=== PATIENT | female | born 1970 | race Caucasian/White ===

== ENCOUNTER → 2020-08-05 08:04 | Outpatient (BNVA) | payer BC, SELFPAY | PROVIDERS: PCP Nurse Practitioner Primary Care; Referring Provider Nurse Practitioner Primary Care; Visit Provider Physician Assistant ==

== ENCOUNTER → 2020-08-10 08:08 | Outpatient (BNVA) | payer BC, SELFPAY | PROVIDERS: PCP Nurse Practitioner Primary Care; Visit Provider Surgery ==

== ENCOUNTER 2020-08-12 07:23 | Outpatient (REF) | payer BC, SELFPAY ==
--- NOTE | ~2020-08-12 | XR_ITS ---
EXAMINATION: XR CHEST CLINICAL INFORMATION: Obesity COMPARISON: None TECHNIQUE: 2 views of the chest were obtained. FINDINGS: The cardiac and mediastinal contours are normal. The lung volumes are low. The lungs are clear. There is no pleural effusion or pneumothorax. There are mild degenerative change of the spine. XR/XR chest 2V IMPRESSION: No evidence for acute disease in the chest.
--- NOTE | 2020-08-12 13:49 | ECG_ITS ---
Test Reason : MORBID OBESITY Blood Pressure : / mmHG Vent. Rate : 094 BPM Atrial Rate : 094 BPM P-R Int : 156 ms QRS Dur : 076 ms QT Int : 354 ms P-R-T Axes : 053 040 050 degrees QTc Int : 442 ms Sinus rhythm with marked sinus arrhythmia Otherwise normal ECG No previous ECGs available Referred By: Víctor Marquez Electronically Signed By:GT CHAPPELL
== END 2020-08-12 07:24 | disposition home or self-care (01) ==
LOC: HO.XRAY 07:23
PROVIDERS: PCP Nurse Practitioner Primary Care; Visit Provider Surgery
DX: E66.01 Morbid (severe) obesity due to excess calories (principal); E78.5 Hyperlipidemia, unspecified; K21.9 Gastro-esophageal reflux disease without esophagitis; Z68.42 Body mass index [BMI] 45.0-49.9, adult; Z71.3 Dietary counseling and surveillance
CPT/HCPCS: 71046; 93005

== ENCOUNTER 2020-08-13 08:10 | Outpatient (REF) | payer BC, SELFPAY ==
[2020-08-13 09:11] LABS: MANUAL DIFF FLAG NO
[2020-08-13 09:18] LABS: Basophils Absolute Auto 0.1 X10*3/uL (0.0-0.2); Basophils Percent Auto 0.6 % (0-2); Eosinophils Absolute Auto 0.3 X10*3/uL (0.0-0.4); Eosinophils Percent Auto 3.1 % (0-4); Hematocrit 41.8 % (37-47); Hemoglobin 13.5 g/dl (12.0-16.0); Imm Gran Abs Auto 0.06 X10*3/uL (0.00-0.03); Imm Gran Pct Auto 0.7 % (0.0-0.4); Lymphocytes Absolute Auto 2.2 X10*3/uL (1.2-4.9); Mean Corpuscular HGB Conc 32.3 g/dl (31.0-35.0); Mean Corpuscular Hemoglobin 29.7 pg (27.0-33.0); Mean Corpuscular Volume 91.9 fL (80-98); Mean Platelet Volume 8.5 fL (9.4-12.3); Monocytes Absolute Auto 0.6 X10*3/uL (0.1-1.2); Neutrophils Absolute Auto 5.6 X10*3/uL (2.0-8.3); Neutrophils Percent Auto 63.6 % (45-73); Platelet Count 411 X10*3/uL (160-400); Red Blood Count 4.55 X10*6/uL (4.20-5.50); Red Cell Distribution Width 13.4 % (11.0-16.0); White Blood Count 8.8 X10*3/uL (4.8-10.8)
[2020-08-13 09:45] LABS: Alanine Aminotransferase 104 U/L (0-31); Albumin Level 3.9 g/dL (3.5-5.0); Alkaline Phosphatase 77 U/L (39-117); Anion Gap 14 (12-20); Aspartate Amino Transferase 152 U/L (5-31); Bilirubin Total 0.3 mg/dL (0.0-1.0); Blood Urea Nitrogen 11 mg/dL (9-16); C Reactive Protein 3.02 mg/dL (< or = 0.50); Calcium 9.3 mg/dL (8.4-10.2); Carbon Dioxide 28 mmol/L (22-29); Chloride 102 mmol/L (96-108); Cholesterol 221 mg/dL; Estimated Average Glucose 123 mg/dL; Estimated Glomerular Filt Rate > 60; Glucose Random 95 mg/dL (60-115); HDL Cholesterol 71 mg/dL; Hemoglobin A1c % 5.9 %; Iron 149 mcg/dL (30-160); LDL Cholesterol Calculated 123 mg/dl; Percent Iron Saturation 33 % (15-50); Potassium 4.6 mmol/L (3.3-5.1); Sodium 139 mmol/L (135-145); Total Iron Binding Capacity 446 mcg/dL (228-428); Total Protein 6.9 g/dL (6.5-8.0); Triglycerides 138 mg/dL; Unsaturated Iron Binding 297 ug/dL
[2020-08-13 10:06] LABS: TSH reflex Free T4 2.75 uIU/mL (0.32-4.0); Vitamin D 25-OH Total 38.2 ng/mL (>30)
[2020-08-13 10:44] LABS: Ferritin 733 ng/mL (10-250)
[2020-08-15 09:36] LABS: Folate 9.9 ng/mL (> or = 4.0); Vitamin B12 1896 pg/mL (200-900)
[2020-08-15 13:16] LABS: Calcium (PTHI) 9.3 mg/dL (8.6-10.2); PTHI 55 pg/mL (14-64)
[2020-08-15 15:17] LABS: Insulin Level Total 12.9 uIU/mL
[2020-08-16 16:12] LABS: Zinc 70 mcg/dL (60-130)
[2020-08-17 12:44] LABS: Vitamin A 55 mcg/dL (38-98)
[2020-08-18 10:08] LABS: Vitamin B1 10 nmol/L (8-30)
== END 2020-08-13 08:11 | disposition home or self-care (01) ==
LOC: HO.LAB 08:10
PROVIDERS: PCP Nurse Practitioner Primary Care; Visit Provider Surgery
DX: E66.01 Morbid (severe) obesity due to excess calories (principal); E78.5 Hyperlipidemia, unspecified; K21.9 Gastro-esophageal reflux disease without esophagitis
CPT/HCPCS: 36415; 80053; 80061; 82306; 82607; 82728; 82746; 83036; 83525; 83540; 83970; 84425; 84443; 84590; 84630; 85025; 86140

== ENCOUNTER → 2020-08-25 10:55 | Day surgery (SDC) | payer BC, SELFPAY ==
[2020-08-17 20:26] VITALS: BMI 46.8
--- NOTE | 2020-08-24 08:47 | HO.ANESPROP2 ---
Documented by User: Afshan Collier 08/24/20 08:48 HPI - Anesthesia Eval Consult details Narrative: 50yo F for Upper Endoscopy PMFSH Active Problems Active Problems: All Active Problems (Updated 08/17/20 @ 20:25 by Katharine Hernandez RN) Steatosis, liver (Acute) Back pain (Acute) Knee pain (Acute) GERD (gastroesophageal reflux disease) (Acute) Hyperlipemia (Acute) Morbid obesity (Acute) Past Medical History Medical History Anxiety Arthritis Back pain GERD (gastroesophageal reflux disease) Hyperlipemia Knee pain Morbid obesity Steatosis, liver Family History Family History Mother No problems noted. Father No problems noted. Brother Diabetes Sister No problems noted. Sister Liver enzyme elevation Son No problems noted. Daughter No problems noted. Surgical History Surgical History History of ankle surgery Hx of cholecystectomy Social History Social History Alcohol intake: current Alcohol intake frequency: a few times a month Smoking Status: Never smoker Use of substances other than those prescribed or required for medical reasons: No Are you DNR?: No Advance Directives: No Advance Directives Information Provided: No Advance Directives on File: No Recently lost weight without trying: No Nutrition Risks: No Nutritional Risk Patient : No FDLMP: 07/31/20 Meds Allergies Allergy/AdvReac Type Severity Reaction Status Date / Time No Known Allergies Allergy Verified 08/12/20 07:40 Home Medications Medication Instructions Recorded Confirmed Last Taken Type ethynodiol diacetate-ethinyl 1 tab PO DAILY 08/10/20 08/17/20 Unknown History estradiol 1 mg-35 mcg tablet omeprazole 20 mg capsule,delayed 20 mg PO DAILY 08/10/20 08/17/20 Unknown History release rosuvastatin 5 mg tablet 5 mg PO DAILY 08/10/20 08/17/20 Unknown History Exam Exam Date and Time: August 24, 2020 0847 Height,Weight and Vital Signs: Height 5 ft 1 in Weight 112.491 kg Narrative Narrative: EKG 08/12/20 Vent. Rate : 094 BPM Atrial Rate : 094 BPM P-R Int : 156 ms QRS Dur : 076 ms QT Int : 354 ms P-R-T Axes : 053 040 050 degrees QTc Int : 442 ms Sinus rhythm with marked sinus arrhythmia Otherwise normal ECG No previous ECGs available Assessment and Plan Assessment Anesthesia Assessment: Chart Reviewed Documented by User: Mouna Garcia 08/25/20 12:55 [facility] Past Medical History Medical History Anxiety Arthritis Back pain GERD (gastroesophageal reflux disease) Hyperlipemia Knee pain Morbid obesity Steatosis, liver Family History Family History Mother No problems noted. Father No problems noted. Brother Diabetes Sister No problems noted. Sister Liver enzyme elevation Son No problems noted. Daughter No problems noted. Surgical History Surgical History History of ankle surgery Hx of cholecystectomy Social History Social History Alcohol intake: current Alcohol intake frequency: a few times a month Smoking Status: Never smoker Use of substances other than those prescribed or required for medical reasons: No Are you DNR?: No Advance Directives: No Advance Directives Information Provided: No Advance Directives on File: No Recently lost weight without trying: No Nutrition Risks: No Nutritional Risk Patient : No FDLMP: 07/31/20 Meds Allergies Allergy/AdvReac Type Severity Reaction Status Date / Time No Known Allergies Allergy Verified 08/12/20 07:40 Home Medications Medication Instructions Recorded Confirmed Last Taken Type ethynodiol diacetate-ethinyl 1 tab PO DAILY 08/10/20 08/17/20 Unknown History estradiol 1 mg-35 mcg tablet omeprazole 20 mg capsule,delayed 20 mg PO DAILY 08/10/20 08/17/20 Unknown History release rosuvastatin 5 mg tablet 5 mg PO DAILY 08/10/20 08/17/20 Unknown History Exam Airway Mallampati Class: II TM Dist: >3cm Neck ROM: Full Loose/Missing/Broken Teeth: No Heart: RRR Lungs: CTA Assessment and Plan Assessment Anesthesia Assessment: Anesthesia Plan Discussed and Chart Reviewed Final Anesthetic Review NPO: Yes ASA Class: III Final Preanesthetic Review: Meds/Allgs Chart Reviewed, Consent Obtained/Reviewed and Anes Risks/Benef Reviewed Patient Risk: Intermediate Procedure Risk: Intermediate Anesthetic Plan Anesthetic Plan: MAC: Disposition: Standard PACU
--- NOTE | 2020-08-24 23:11 | MHC.SHP ---
Pre-Procedural Eval Section A The patient is an INPATIENT: No The History & Physical has been completed within 30 days and I have reviewed it.: Yes Section B Chief Complaint: reflux Details of Present Illness: GERD Relevant Family History (Specify if Yes): No Relevant Social History: None Present Medications: see Short Stay Collaborative assessment Medical History: No relevant PMH History of Previous Operations: No relevant previous surgery Allergies: Allergies Allergy/AdvReac Type Severity Reaction Status Date / Time No Known Allergies Allergy Verified 08/12/20 07:40 Review of Systems Sugical H&P ROS: Negative: Constitution, Cardiovascular, Respiratory, Neurological, Psychiatric, Hem-Onc, Allergic/Immunologic, Gastrointestinal, Genitourinary, Musculoskeletal, Integumentary, Endocrine and Eyes/Ears/Nose/Throat Exam Surgical H&P Exam: Normal: HEENT, Normal: Heart, Normal: Lungs, Normal: Extremities, Normal: Abdomen, Normal: Skin and Normal: Neurological Plan Diagnosis/Plan: Unchanged (EGD to assess GERD and rule out hiatal hernia and esophagitis) I have reviewed the history and physical and performed a pertinent physical examination on my patient. No changes have occurred unless specified.
[2020-08-25 12:16] VITALS: BP 142/87; PULSE 92; RESP 18; TEMP 36.1; O2SAT 97
[2020-08-25 12:24] LABS: UPreg QC Valid YES; Urine Pregnancy NEGATIVE (NEGATIVE)
[2020-08-25] MEDS: Lactated Ringers 1,000 ML 100 ML IVCONT (12:26)
[2020-08-25 12:30] LABS: COVID-19 Test Negative (Negative); IDNOW Serial# 9DD0AD1C
--- NOTE | 2020-08-25 12:57 | P.BOP_ITS ---
Brief Operative Note Date of Service: 08/25/20 Pre-op diagnosis: GERD and morbid obesity Post-op diagnosis: same Procedure: PROCEDURE DATE: 08/25/2020 PREOPERATIVE DIAGNOSIS: GERD and obesity POSTOPERATIVE DIAGNOSIS: Same as above. 1) small hiatal hernia, 2) distal gastritis, 3) esophagitis III, 4) gastric polyps, PROCEDURE: [id number] with biopsies Surgeon: Josue Marquez M.D.. Ph.D. Rivet Hammer Machine Operator: None Anesthesia: IV sedation Estimated blood loss: Minimal FINDINGS AND PROCEDURE: OPERATIVE INDICATIONS: The patient is a 50 year old female known to [place] who is evaluated for morbid obesity and bariatric surgery. She had severe GERD and was not able to discontinue the Omeprazole for 2 weeks to perform the H. pylori breath test. She presents for an endoscopy and a biopsy. Risks and complications of the surgery were discussed with the patient in advance particularly the possibility of perforation or bleeding that may require surgical intervention. The patient understood the risks and was in agreement with the plan. PROCEDURE: After informed consent was obtained by the patient, the patient was transferred to the Operating Room and was placed in the supine position. After successful induction of IV sedation, a mouth block was inserted and the patient was placed in the left lateral decubitus position. An upper endoscopy was performed next, the oropharynx and esophagus appeared within the normal limits. There was a small hiatal hernia. The z-line was irregular with tongus of gastric mucosa protruding into the esophagus in more than 50% circumference. Two biopsies were obtained from the distal esohagus 2-3 cm proximal to the GE junction and two additional biopsies from the GE junction. The stomach was entered and it appeared to be of normal size. There was mild gastritis at distal antrum. There was no stricture or ulcer. Biopsies were obtained from the proximal stomach as well as the distal antrum. There were also several polyps especially in the gastric fundus and a more prominent of them was also biopsied. No significant bleeding was noted from any of the biopsy sites. The scope was then advanced into the duodenum which appeared to be normal as w ell. At that point the duodenum and the stomach were decompressed and the scope was withdrawn from the patient's mouth. The patient extubated and was transferred in stable condition to the Recovery Room for further care. I was present and performed all steps of the procedure. There were no residents to assist with this case. Josue Marquez M.D., Ph.D. Surgeon: Víctor Marquez MD Anesthesia: MAC Was an Rivet Hammer Machine Operator used for this Procedure?: No Estimated blood loss (mL): 0 IV fluids (mL): 400 Urine output (mL): 0 (No Cardoza to gravity) Pathology: other (GEJ x2, distal esophagus x2, proximal stomach x1, antrum x1) Condition: stable Disposition: PACU
[2020-08-25 13:25] VITALS: BP 111/76; PULSE 100; RESP 14; TEMP 36.7; O2SAT 97
[2020-08-25 13:40] VITALS: BP 104/71; PULSE 102; RESP 14; TEMP 36.7; O2SAT 98
[2020-08-25 13:55] VITALS: BP 115/73; PULSE 79; RESP 14; TEMP 36.7; O2SAT 96
[2020-08-25 14:08] VITALS: BP 116/77; PULSE 77; RESP 16; O2SAT 96
== END | disposition home or self-care (01) ==
PROVIDERS: Nurse Practitioner; PCP Nurse Practitioner Primary Care; Visit Provider Surgery
PROC: 0DJ08ZZ Inspection of Upper Intestinal Tract, Via Natural or Artificial Opening Endoscopic (ICD-10-PCS; CPT 43235; principal; 2020-08-25 12:20)
DX: K21.9 Gastro-esophageal reflux disease without esophagitis (principal); K20.80 Other esophagitis without bleeding; K29.50 Unspecified chronic gastritis without bleeding; K31.7 Polyp of stomach and duodenum; K44.9 Diaphragmatic hernia without obstruction or gangrene; K76.0 Fatty (change of) liver, not elsewhere classified; E66.01 Morbid (severe) obesity due to excess calories; Z68.42 Body mass index [BMI] 45.0-49.9, adult; E78.5 Hyperlipidemia, unspecified; Z79.899 Other long term (current) drug therapy; Z90.49 Acquired absence of other specified parts of digestive tract
CPT/HCPCS: 43239; 36415; 81025; 87635; 88305; 88342

== ENCOUNTER 2020-08-30 08:05 | Outpatient (REF) | payer BC, SELFPAY ==
--- NOTE | ~2020-08-30 | FL_ITS ---
EXAMINATION: XR GI SERIES CLINICAL INFORMATION: Obesity COMPARISON: None TECHNIQUE: Upper GI was performed using thin and thick barium and effervescent granules. FINDINGS: Esophageal motility is normal. No hernia is seen. There is mild gastroesophageal reflux. The stomach and duodenum are normal. No fold thickening, mass, ulcer or stricture is seen. FLUOROSCOPY TIME: 0.9 DOSE AREA PRODUCT: 13 carrillo per centimeter squared. 21 saved fluoroscopic images FL/FL upper GI series IMPRESSION: Mild gastroesophageal reflux otherwise unremarkable exam.
--- NOTE | ~2020-08-30 | US_ITS ---
EXAMINATION: US COMPLETE ABDOMEN WITH LIVER ELASTOGRAPHY CLINICAL INFORMATION: Obesity COMPARISON: None. TECHNIQUE: Real-time imaging of the abdominal viscera. Noninvasive ultrasound liver fibrosis assessment is performed using [place] ElastPQ point quantification shear wave elastography (pSWE) with a C5-2 MHz transducer. Multiple elastography samples are obtained. FINDINGS: PANCREAS: Not well visualized due to bowel gas ABDOMINAL AORTA: The proximal, middle, and distal aortic segments are normal in caliber. INFERIOR VENA CAVA: Visualized portions are normal. LIVER: Liver echotexture is increased. The liver demonstrates normal size and contour. No focal lesion or intrahepatic biliary duct dilatation. The right lobe measures 16 cm in length. The left lobe measures 11 cm in length. Portal flow is normal/hepatopedal Shear wave liver elastography median stiffness is 1.5 m/s (reference: normal median stiffness is 1.3 m/s or less). IQR/median stiffness to assess sampling precision is 0.19 (reference: good quality data set is IQR/median stiffness of 0.15 or less). GALLBLADDER: Surgically removed COMMON BILE DUCT: Normal in caliber measuring 0.5 cm in diameter. RIGHT KIDNEY: Normal. No hydronephrosis. No renal calculi or focal parenchymal lesions. The kidney measures 11.8 cm in maximum dimension. LEFT KIDNEY: There is a 1.2 x 1.2 x 0.9 cm cyst in the upper pole. No hydronephrosis. No renal calculi or mass. The kidney measures 11 cm in maximum dimension. SPLEEN: Normal. The spleen measures 10 cm in maximum dimension. FREE FLUID: None. US/US abdomen comp w elastography IMPRESSION: 1. Impression: Echogenic liver probably representing fatty infiltration. Small left renal cyst. Limited visualization of the pancreas. 2. Liver elastography: Slightly limited due to sampling error. In the absence of other known clinical signs, rules out compensated advanced chronic liver disease. REFERENCE: Society of Radiologists in Ultrasound Liver Stiffness Thresholds (2020): LIVER STIFFNESS THRESHOLDS: *Liver Stiffness equal or less than 1.3 m/s: High probability of being normal. *Liver Stiffness less than 1.7 m/s: In the absence of other known clinical signs, rules out compensated advanced chronic liver disease. *Liver Stiffness 1.7-2.1 m/s: Suggestive of compensated advanced chronic liver disease but need further test for confirmation. *Liver Stiffness over 2.1 m/s: Rules in compensated advanced chronic liver disease. *Liver Stiffness over 2.4 m/s: Suggestive of clinically significant portal hypertension. QUALITY OF DATA SET: *IQR/Median value equal or less than 0.15 implies a quality data set. *IQR/Median value over 0.15 implies a poor quality data set. SIGNIFICANT CHANGE FROM PRIOR EXAM: Significant change if liver stiffness measurement is 10% or greater from prior exam. OTHER CONSIDERATIONS: The stage of liver fibrosis may be overestimated in the setting of acute hepatitis, liver inflammation, elevated liver function tests, hepatic vascular congestion, obstructive cholestasis, non-fasting state, and infiltrative diseases such as amyloidosis and lymphoma. In some patients with NAFLD, the liver stiffness thresholds for compensated advanced chronic liver disease may be lower. In causes other than viral hepatitis and NAFLD, liver stiffness thresholds are not well established.
== END 2020-08-30 08:06 | disposition home or self-care (01) ==
LOC: HO.US 08:05
PROVIDERS: Visit Provider Surgery
DX: Z01.818 Encounter for other preprocedural examination (principal); E66.01 Morbid (severe) obesity due to excess calories; K21.9 Gastro-esophageal reflux disease without esophagitis; E78.5 Hyperlipidemia, unspecified
CPT/HCPCS: 74240; 76705; 76981

== ENCOUNTER → 2020-09-02 08:47 | Outpatient (BNVA) | payer BC, SELFPAY | PROVIDERS: PCP Nurse Practitioner Primary Care; Visit Provider Surgery ==

== ENCOUNTER → 2020-09-09 08:37 | Outpatient (BNVA) | payer BC, SELFPAY | PROVIDERS: PCP Nurse Practitioner Primary Care; Visit Provider Dietitian, Registered | DX: E66.01 Morbid (severe) obesity due to excess calories (principal); Z68.42 Body mass index [BMI] 45.0-49.9, adult | CPT/HCPCS: 97802 ==

== ENCOUNTER → 2020-10-12 07:20 | Outpatient (BNVA) | payer BC, SELFPAY | PROVIDERS: PCP Nurse Practitioner Primary Care; Visit Provider Surgery ==

== ENCOUNTER → 2020-10-14 13:31 | Outpatient (BNVA) | payer BC, SELFPAY | PROVIDERS: PCP Nurse Practitioner Primary Care; Referring Provider Nurse Practitioner Primary Care; Visit Provider Physician Assistant ==

== ENCOUNTER 2020-10-18 06:40 | Inpatient (IN) | payer BC, SELFPAY ==
[2020-10-13 07:29] LABS: MANUAL DIFF FLAG NO
[2020-10-13 07:36] LABS: Basophils Absolute Auto 0.1 X10*3/uL (0.0-0.2); Basophils Percent Auto 0.5 % (0-2); Eosinophils Absolute Auto 0.2 X10*3/uL (0.0-0.4); Eosinophils Percent Auto 1.7 % (0-4); Hematocrit 42.5 % (37-47); Hemoglobin 13.7 g/dl (12.0-16.0); Imm Gran Abs Auto 0.08 X10*3/uL (0.00-0.03); Imm Gran Pct Auto 0.7 % (0.0-0.4); Lymphocytes Absolute Auto 2.6 X10*3/uL (1.2-4.9); Mean Corpuscular HGB Conc 32.2 g/dl (31.0-35.0); Mean Corpuscular Volume 89.9 fL (80-98); Mean Platelet Volume 8.7 fL (9.4-12.3); Monocytes Absolute Auto 0.7 X10*3/uL (0.1-1.2); Monocytes Percent Auto 6.2 % (2-11); Neutrophils Absolute Auto 7.1 X10*3/uL (2.0-8.3); Neutrophils Percent Auto 66.9 % (45-73); Platelet Count 403 X10*3/uL (160-400); Red Blood Count 4.73 X10*6/uL (4.20-5.50); Red Cell Distribution Width 13.6 % (11.0-16.0); White Blood Count 10.7 X10*3/uL (4.8-10.8)
[2020-10-13 07:44] LABS: Prothrombin Time 11.9 SEC (9.9-13.0)
[2020-10-13 07:46] LABS: Partial Thromboplastin Time 34.6 SEC (24.1-38.0)
[2020-10-13 08:21] LABS: Estimated Average Glucose 105 mg/dL; Hemoglobin A1c % 5.3 %
[2020-10-13 08:35] LABS: Alanine Aminotransferase 45 U/L (0-31); Albumin Level 3.8 g/dL (3.5-5.0); Alkaline Phosphatase 74 U/L (39-117); Anion Gap 17 (12-20); Aspartate Amino Transferase 30 U/L (5-31); Bilirubin Total 0.7 mg/dL (0.0-1.0); Blood Urea Nitrogen 11 mg/dL (9-16); C Reactive Protein 2.98 mg/dL (< or = 0.50); Calcium 9.4 mg/dL (8.4-10.2); Carbon Dioxide 21 mmol/L (22-29); Chloride 104 mmol/L (96-108); Cholesterol 214 mg/dL; Estimated Glomerular Filt Rate > 60; Glucose Random 93 mg/dL (60-115); HDL Cholesterol 50 mg/dL; LDL Cholesterol Calculated 134 mg/dl; Sodium 138 mmol/L (135-145); Total Protein 6.9 g/dL (6.5-8.0); Triglycerides 154 mg/dL
[2020-10-13 08:58] LABS: TSH reflex Free T4 3.61 uIU/mL (0.32-4.0)
[2020-10-14 09:14] VITALS: BMI 43.8
[2020-10-14 18:32] LABS: Insulin Level Total 16.6 uIU/mL
--- NOTE | 2020-10-17 08:35 | HO.ANESPROP2 ---
Documented by User: Afshan Collier 10/17/20 08:36 HPI - Anesthesia Eval Consult details Narrative: 50yo F for Gastrectomy Sleeve, EGD, Poss Diaphragmatic Hernia, Poss Ventral Hernia, Poss open PMFSH Active Problems Active Problems: All Active Problems (Updated 10/14/20 @ 09:15 by Ivone Garza) Adjustment disorder, unspecified (Acute) Steatosis, liver (Acute) Back pain (Acute) Knee pain (Acute) GERD (gastroesophageal reflux disease) (Acute) Hyperlipemia (Acute) Morbid obesity (Acute) Past Medical History Medical History Anxiety Arthritis Back pain COVID-19 vaccine administered GERD (gastroesophageal reflux disease) Hyperlipemia Knee pain Morbid obesity Steatosis, liver Family History Family History Mother No problems noted. Father No problems noted. Brother Diabetes Sister No problems noted. Sister Liver enzyme elevation Son No problems noted. Daughter No problems noted. Surgical History Surgical History History of ankle surgery History of esophagogastroduodenoscopy (EGD) Hx of cholecystectomy Social History Social History Household Members: Children Housing: House Are you a primary manager primary care to a significant other at home: No Do you presently have visiting nurse or other home services: No Alcohol intake: current Alcohol intake frequency: holidays/special occasions only Patient Tobacco Use Status: Never used Tobacco Use of substances other than those prescribed or required for medical reasons: No Have you been hit, kicked, punched, or otherwise hurt by someone within the past year? If so, by whom?: No Are you DNR?: No Advance Directives: No Advance Directives Information Provided: Yes (does not have a HCP) Advance Directives on File: No Recently lost weight without trying: No Eating poorly because of decreased appetite: No Nutrition Risks: No Nutritional Risk Patient : No FDLMP: 09/30/20 : No Poor oral hygiene: No Meds Allergies Allergy/AdvReac Type Severity Reaction Status Date / Time No Known Allergies Allergy Verified 10/12/20 09:29 Home Medications Medication Instructions Recorded Confirmed Last Taken Type ethynodiol diacetate-ethinyl 1 tab PO DAILY 08/10/20 10/14/20 10/13/20 History estradiol 1 mg-35 mcg tablet omeprazole 20 mg capsule,delayed 20 mg PO DAILY 08/10/20 10/14/20 Unknown History release rosuvastatin 5 mg tablet 5 mg PO DAILY 08/10/20 10/14/20 Unknown History Exam Exam Date and Time: October 17, 2020 0835 Height,Weight and Vital Signs: Height 5 ft 1 in Weight 105.233 kg Pertinent Lab Results Pertinent Lab Results: Laboratory Tests 10/13/20 10/13/20 10/13/20 06:35 06:35 06:35 WBC 10.7 RBC 4.73 Hgb 13.7 Hct 42.5 MCV 89.9 MCH 29.0 MCHC 32.2 RDW 13.6 Plt Count 403 H MPV 8.7 L Immature Gran % (Auto) 0.7 H Neut % (Auto) 66.9 Lymph % (Auto) 24.0 [place] % (Auto) 6.2 Eos % (Auto) 1.7 Baso % (Auto) 0.5 Lymph # (Auto) 2.6 [place] # (Auto) 0.7 Eos # (Auto) 0.2 Baso # (Auto) 0.1 Abs Immat Gran (auto) 0.08 H Absolute Neuts (auto) 7.1 Absolute Nucleated RBC 0.000 Nucleated RBC % (auto) 0.0 PT 11.9 INR 1.0 APTT 34.6 Sodium 138 Potassium 4.0 Chloride 104 Carbon Dioxide 21 L Anion Gap 17 BUN 11 Creatinine 0.80 Estim Creat Clear Calc TNP Estimated GFR > 60 Random Glucose 93 Estimat Average Glucose Hemoglobin A1c % Total Insulin Calcium 9.4 Total Bilirubin 0.7 AST 30 D ALT 45 H Alkaline Phosphatase 74 C-Reactive Protein 2.98 H Total Protein 6.9 Albumin 3.8 Triglycerides 154 Cholesterol 214 LDL Cholesterol, Calc 134 HDL Cholesterol 50 D TSH 3.61 Blood Type Antibody Screen 10/13/20 10/13/20 10/13/20 06:35 06:35 06:35 WBC RBC Hgb Hct MCV MCH MCHC RDW Plt Count MPV Immature Gran % (Auto) Neut % (Auto) Lymph % (Auto) [place] % (Auto) Eos % (Auto) Baso % (Auto) Lymph # (Auto) [place] # (Auto) Eos # (Auto) Baso # (Auto) Abs Immat Gran (auto) Absolute Neuts (auto) Absolute Nucleated RBC Nucleated RBC % (auto) PT INR APTT Sodium Potassium Chloride Carbon Dioxide Anion Gap BUN Creatinine Estim Creat Clear Calc Estimated GFR Random Glucose Estimat Average Glucose 105 Hemoglobin A1c % 5.3 Total Insulin 16.6 Calcium Total Bilirubin AST ALT Alkaline Phosphatase C-Reactive Protein Total Protein Albumin Triglycerides Cholesterol LDL Cholesterol, Calc HDL Cholesterol TSH Blood Type O Positive Antibody Screen NEGATIVE Narrative Narrative: EKG 08/2020 Vent. Rate : 094 BPM Atrial Rate : 094 BPM P-R Int : 156 ms QRS Dur : 076 ms QT Int : 354 ms P-R-T Axes : 053 040 050 degrees QTc Int : 442 ms Sinus rhythm with marked sinus arrhythmia Otherwise normal ECG No previous ECGs available Assessment and Plan Assessment Anesthesia Assessment: Chart Reviewed Documented by User: Romel Ward 10/18/20 10:59 PMFSH Past Medical History Medical History Anxiety Arthritis Back pain COVID-19 vaccine administered GERD (gastroesophageal reflux disease) Hyperlipemia Knee pain Morbid obesity Steatosis, liver Family History Family History Mother No problems noted. Father No problems noted. Brother Diabetes Sister No problems noted. Sister Liver enzyme elevation Son No problems noted. Daughter No problems noted. Surgical History Surgical History History of ankle surgery History of esophagogastroduodenoscopy (EGD) Hx of cholecystectomy Social History Social History Household Members: Children Housing: House Are you a primary manager primary care to a significant other at home: No Do you presently have visiting nurse or other home services: No Alcohol intake: current Alcohol intake frequency: holidays/special occasions only Patient Tobacco Use Status: Never used Tobacco Use of substances other than those prescribed or required for medical reasons: No Have you been hit, kicked, punched, or otherwise hurt by someone within the past year? If so, by whom?: No Are you DNR?: No Advance Directives: No Advance Directives Information Provided: Yes (does not have a HCP) Advance Directives on File: No Recently lost weight without trying: No Eating poorly because of decreased appetite: No Nutrition Risks: No Nutritional Risk Patient : No FDLMP: 09/30/20 : No Poor oral hygiene: No Meds Allergies Allergy/AdvReac Type Severity Reaction Status Date / Time No Known Allergies Allergy Verified 10/12/20 09:29 Home Medications Medication Instructions Recorded Confirmed Last Taken Type ethynodiol diacetate-ethinyl 1 tab PO DAILY 08/10/20 10/14/20 10/13/20 History estradiol 1 mg-35 mcg tablet omeprazole 20 mg capsule,delayed 20 mg PO DAILY 08/10/20 10/14/20 Unknown History release rosuvastatin 5 mg tablet 5 mg PO DAILY 08/10/20 10/14/20 Unknown History Exam Airway Mallampati Class: III TM Dist: >3cm Neck ROM: Full Loose/Missing/Broken Teeth: No Heart: [id number] Lungs: cta b/l Assessment and Plan Assessment Anesthesia Assessment: Anesthesia Plan Discussed, PAT Visit and Chart Reviewed Final Anesthetic Review NPO: Yes ASA Class: III Final Preanesthetic Review: No Changes in Pt Med Stat, Meds/Allgs Chart Reviewed, Consent Obtained/Reviewed and Anes Risks/Benef Reviewed Patient Risk: Intermediate Procedure Risk: Low Assessment/Block/Sedation in SS: Assess/Block/Sedation-SS Anesthetic Plan Anesthetic Plan: GA and Agree w/ Assess. and Plan Disposition: Standard PACU
--- NOTE | 2020-10-17 23:57 | MHC.SHP ---
Pre-Procedural Eval Section A Date of Service: 10/17/20 The patient is an INPATIENT: Yes The History & Physical has been completed within 30 days and I have reviewed it.: Yes Section B Chief Complaint: Morbid Severe Obesity Details of Present Illness: Obesity Relevant Family History (Specify if Yes): No Relevant Social History: None Present Medications: see Short Stay Collaborative assessment Medical History: No relevant PMH History of Previous Operations: No relevant previous surgery Allergies: Allergies Allergy/AdvReac Type Severity Reaction Status Date / Time No Known Allergies Allergy Verified 10/12/20 09:29 Review of Systems Sugical H&P ROS: Negative: Constitution, Cardiovascular, Respiratory, Neurological, Psychiatric, Hem-Onc, Allergic/Immunologic, Gastrointestinal, Genitourinary, Musculoskeletal, Integumentary, Endocrine and Eyes/Ears/Nose/Throat Exam Surgical H&P Exam: Normal: HEENT, Normal: Heart, Normal: Lungs, Normal: Extremities, Normal: Abdomen, Normal: Skin and Normal: Neurological Plan Diagnosis/Plan: Unchanged I have reviewed the history and physical and performed a pertinent physical examination on my patient. No changes have occurred unless specified.
[2020-10-18] VITALS (9 sets, daily range): BP systolic 124–164; BP diastolic 68–102; PULSE 83–112; RESP 14–20; TEMP 36.2–37; O2SAT 98–100
[2020-10-18 09:08] LABS: UPreg QC Valid YES; Urine Pregnancy NEGATIVE (NEGATIVE)
[2020-10-18 09:20] LABS: COVID-19 Test Negative (Negative); IDNOW Serial# 9DD0AD1C
--- NOTE | 2020-10-18 14:25 | PM.PNGS ---
Subjective Subjective Date of Service: 10/19/20 Interval history: Patient has mild incisional pain but was able to ambulate and use the incentive spirometer. She is tolerating phase 1 bariatric diet. Physical Exam Vital Signs: Vital Signs: Last Vital Signs Temp 98.6 F 10/18/20 09:05 Pulse 87 10/18/20 09:05 Resp 16 10/18/20 09:05 BP 124/68 10/18/20 09:05 Pulse Ox 98 10/18/20 09:05 Body Mass Index 43.8 GI: Inspection: Yes normal to inspection, Yes incision (clean, dry and intact) and Yes obesity Extrem: Right lower extremity: normal to inspection (no calf tenderness) Left lower extremity: normal to inspection (no calf tenderness) Progress Note: A&P Assessment and plan (1) Morbid obesity: Status: Acute Assessment and Plan: s/p sleeve gastrectomy, gastropexy and diaphragmatic hernia repair Doing well Check am labs. If OK, will d/c home (2) Hyperlipemia: Status: Acute (3) GERD (gastroesophageal reflux disease): Status: Acute (4) Knee pain: Status: Acute (5) Back pain: Status: Acute (6) Steatosis, liver: Status: Acute (7) Liver fibrosis: Status: Acute (8) Diaphragmatic hernia: Status: Acute (9) Status post repair of paraesophageal diaphragmatic hernia: Status: Acute Fall Risk Details Current Medications: Current Medications Generic Name Dose Route Start Last Admin Trade Name Freq PRN Reason Stop Dose Admin Fentanyl 50 mcg 10/18/20 10:59 Fentanyl Citrate/Pf 100 Mcg/2 Ml Vial IVPUSH Q5M PRN Pain, Moderate (Pain Scale 4-6 Hydromorphone HCl 0.5 mg 10/18/20 10:59 Hydromorphone Hcl 0.5 Mg/0.5 Ml Syringe IVPUSH Q5M PRN Pain, Severe (Pain Scale 7-10) Lactated Ringer's 1,000 mls @ 100 mls/hr 10/18/20 08:45 Lr IVCONT .Q10H TRACEE Promethazine HCl 12.5 mg/ 50.5 mls @ 202 mls/hr 10/18/20 10:59 Sodium Chloride IV ONCE PRN Nausea and Vomiting Ondansetron HCl 4 mg 10/18/20 10:59 Ondansetron Hcl 4 Mg/2 Ml Vial IVPUSH ONCE PRN Nausea and Vomiting Oxycodone HCl 10 mg 10/18/20 10:59 Oxycodone Hcl Immed Release 5 Mg Tablet PO ONCE PRN Pain, Mild (Pain Scale 1-3) Time Spent With Patient Time: Total time spent is greater than 50% in coordination of care (as documented) at patient's floor/unit and/or counseling patient: Time with patient: less than 15 minutes Procedures Date of Service Date of Service: 10/19/20 Quality Stroke Does the patient have a stroke diagnosis?: No VTE Prior VTE?: No VTE Risk Level:: Surgical - moderate VTE Device Contraindication: N/A - Device Ordered VTE Drug Contraindication: Treatment Not Indicated
--- NOTE | 2020-10-18 17:14 | PM.OP ---
Brief Operative Note Date of Service: 10/18/20 Pre-op diagnosis: Morbid obesity and comorbidities (see below) Post-op diagnosis: same (& diaphragmatic hernia) Procedure: INITIAL PATIENT BMI ON PRESENTATION AT OUR OFFICE: 47.8 kg/m2 LAST BMI BEFORE SURGERY: 42.7 kg/m2 COMORBIDITIES: GERD, hyperlipidemia, liver steatosis, knee pain, back pain, liver fibrosis The patient participated in an intensive weekly lifestyle intervention and exercise program during which the patient has lost between the initial office visit and the last preoperative visit 26lbs, or 10.4% of initial actual body weight. The patient met the BMI-criteria for bariatric surgery based on the BMI on initial presentation. The patient should not be penalized for achieving such weight loss because it is not sustainable long-term without surgical intervention and it was achieved in preparation for bariatric surgery under my direction and based on my published research ([email or web address] and [email or web address]) that a 10% preoperative weight loss improves long-term weight loss after surgery and reduces perioperative complications. Insurance carriers such as [facility] have endorsed my recommendations and have included in their policies criteria to include a 10% preoperative weight loss requirement. PROCEDURE: Esophago-gastroscopy, laparoscopic repair of incarcerated diaphragmatic hernia, laparoscopic lysis of adhesions, laparoscopic sleeve gastrectomy and laparoscopic gastropexy INDICATIONS: This is a 50 year-old female who was electively scheduled for laparoscopic, possibly open sleeve gastrectomy. The risks and complications of the procedure were discussed with the patient in advance, particularly the possibility of ; pulmonary embolism; staple line leak; bleeding; GERD; cardiac, pulmonary, or renal complications; as well as long-term problems such as insufficient weight loss, vitamin deficiency, strictures, or ulcers. The patient understood all the risks, and was in agreement to proceed with surgery. DESCRIPTION OF PROCEDURE: After informed consent was obtained from the patient, the patient was given preoperative antibiotics, and was transferred to the operating room. After successful induction of general anesthesia, pneumatic compressive devices were placed on both lower extremities. An upper endoscopy was performed next. The oropharynx and esophagus appeared to be within normal limits. There was a diaphragmatic hernia present that was not reported at the preoperative upper GI. The stomach was entered. Then after all fluid and air were suctioned and the stomach was fully decompressed, the scope was withdrawn and secured in the mid esophagus. The patient was then prepped and draped in the usual sterile manner, and abdominal access was established at the right upper quadrant with the Suze technique. A 12 mm blunt port was inserted, and the abdomen was insufflated with CO2 to a pressure of 15 mmHg. Under direct visualization, additional ports were placed, specifically two 5 mm Versi-step ports to the left upper quadrant, and a 5 mm Versi-Step port to the right upper quadrant. 1% lidocained plan was used to infiltrate all port sites as well as all fascia defects. Following that, the patient was placed in a steep reverse Trendelenburg position. An additional 5 mm port was placed to the right flank for the Mediflex retractor that was used to retract the left lobe of the liver. The gastro-esophageal fat pad was opened with the ultrasonic device (Thunderbeat, Olympus) and the anterior esophagus and hiatus were exposed. The angle of His was opened with the ultrasonic device the fundus of the stomach from any diaphragmatic and splenic attachments. I then opened the gastrocolic ligament between the transverse colon and the greater curvature of the stomach with the ultrasonic device to enter the lesser sac and facilitate the ligation of the short gastric vessels. I started at a mid-point along the greater curvature and using the Thunderbeat, all short gastric vessels were divided all the way to the angle of His until the left shruthi was completely dissected at its entirety. I then divided the gastro-colic ligament distally to a distance of about 3-4 cm proximal to the esophagus. There were extensive congenital adhesions between the pancreas and posterior gastric wall. Those were lysed completely with the ultrasonic device. Adhesiolysis took approximately 45 min to complete. There was an obvious significant-sized hiatal hernia. I continued dissecting along the hiatus toward the left shruthi and the angle of His. I fully mobilized the fat pad that was incarcerated in the hernia. I then continued by dissecting even further into the posterior retro-esophageal space all the way to the angle of His. I continued to mobilize the esophagus into the mediastinum circumferentially. Both vagal nerves were seen and preserved. At that point, I was able to have at least 3 to 5 cm of esophagus into the abdomen. After I completely mobilized the esophagus from both the left and right shruthi and I had a good mobilization of the esophagus circumferentially, I closed the hernia defect with four interrupted #0 Surgidac suture using the Endo Stitch device, three of which was placed posterior and one anterior to the esophagus. The stomach was then divided transversely with one Endo JAYDE-45 purple, one JAYDE-45 orange and five JAYDE-60 articulating orange loads using the AEON stapler and loads. Every effort was made that the gastric sleeve had a tubular shape and an even caliber throughout. Once the sleeve resection was completed, the staple line of the gastric sleeve was reinforced with Hemoclips. The resected stomach was retrieved without difficulty from the Suze port. A gastropexy was then performed in order to prevent postoperative GERD and partial gastric volvulus. Several interrupted 2.0 Surgidac sutures were placed between the sleeve's staple line and the previously divided greater omentum and gastro-colic ligament using the Endo-Stitch device. An upper endoscopy was performed. There was no narrowing at the GE junction. The scope was easily advanced all the way to the pylorus which was clearly visualized. There was no narrowing anywhere and the sleeve's caliber was even throughout. The sleeve's staple line was inspected and there was no evidence of ischemia, bleeding or dehiscence. At that point the gastroscope was withdrawn from the patient?s mouth while we were decompressing the bowel and the stomach from any remaining air. I looked into the lesser sac to see how the sleeve was situating and it was situating well. There was no bleeding from the staple line, spleen, or short gastric vessels. The Mediflex retractor was removed, and the undersurface of the liver was inspected and there was no bleeding. The patient was placed in supine position. I closed the fascial defect of the 12 mm port site with a figure of eight #1 Polysorb suture. Then 100 cc 0.25 % Marcaine plain with 10 mg of Dexamethasone were used to infiltrate the fascial closure as well as all skin incisions. At this point, the abdomen was deflated, all ports were removed under direct vision, and no bleeding was noted from any of the port sites. The skin incisions were irrigated with saline and were closed with 4-0 absorbable monofilament sutures. Steri-Strips and OpSites were used to cover all incisions. The patient was extubated and was transferred in stable condition to the recovery room for further care. I was present and performed all chow parts of the procedure. Denton Greco was the nurse first assist. There were no residents to assist with this case. Josue Marquez MD, PhD, FACS Surgeon: Víctor Marquez MD Anesthesia: GETA, local and other (TAP block) Was an Self Pay Representative used for this Procedure?: Yes Self Pay Representative: Davida Greco Estimated blood loss (mL): 20 IV fluids (mL): 2,500 Urine output (mL): 0 (No Cardoza to record) Pathology: other (stomach) Condition: stable Disposition: PACU
--- NOTE | 2020-10-18 17:26 | PM.DS ---
DS: Providers Provider Date of Service: 10/19/20 Date of admission: 10/18/20 06:40 Primary care physician: Vidya Pryor CNP DS: Diagnosis Discharge Diagnosis (1) Morbid obesity: Status: Acute (2) Hyperlipemia: Status: Acute (3) GERD (gastroesophageal reflux disease): Status: Acute (4) Knee pain: Status: Acute (5) Back pain: Status: Acute (6) Steatosis, liver: Status: Acute (7) Liver fibrosis: Status: Acute (8) Diaphragmatic hernia: Status: Acute (9) Status post repair of paraesophageal diaphragmatic hernia: Status: Acute DS: Medications Discharge Medications Home Medications: Home Medications Medication Instructions Recorded Confirmed ethynodiol diacetate-ethinyl 1 tab PO DAILY 08/10/20 10/14/20 estradiol 1 mg-35 mcg tablet omeprazole 20 mg capsule,delayed 20 mg PO DAILY 08/10/20 10/14/20 release rosuvastatin 5 mg tablet 5 mg PO DAILY 08/10/20 10/14/20 Previous Rx's Medication Instructions Recorded ondansetron HCl 4 mg tablet 4 mg PO Q12H #20 tab 10/12/20 pantoprazole 40 mg tablet,delayed 40 mg PO DAILY #30 tab 10/12/20 release polyethylene glycol 3350 17 gram 17 g PO DAILY #14 ea 10/12/20 oral powder packet sucralfate 100 mg/mL oral 10 ml PO BID #400 ml 10/12/20 suspension DS: Summary Time Spent with Patient Time attestation: ADMITTING DIAGNOSIS: morbid obesity, diaphragmatic hernia, anxiety, arthritis, GERD, hyperlipidemia DISCHARGE DIAGNOSIS: same, s/p laparoscopic sleeve gastrectomy and repair diaphragmatic hernia PAST SURGICAL HISTORY: lap jannet, ankle surgery PROCEDURE: upper endoscopy, laparoscopic sleeve gastrectomy and repair of diaphragmatic hernia hernia DISCHARGE SUMMARY: History of Present Illness: The patient is a 50 year-old woman with a BMI of 47.7 kg/m2 and associated co-morbidities as described above. The patient had extensive work-up,lost 20.8 lbs preoperatively and was electively scheduled for laparoscopic, possible open sleeve gastrectomy and gastropexy. Risks and complications of the surgery were discussed with the patient in advance, particularly the possibility of , pulmonary embolism, anastomotic leak, bleeding, bowel injury, GERD, cardiac, renal or pulmonary complications. The patient understood all the risks and was in agreement with the surgical plan. Hospital Course: The patient underwent an uneventful laparoscopic sleeve gastrectomy with gastropexy and repair of diaphragmatic hernia on the day of admission. Postoperatively, the patient was transferred to the surgical floor. The patient was on IV Acetaminophen and IV dilaudid for pain control. Patient was started on bariatric phase 1 diet POD #0. On postoperative day one, the patient was feeling well without nausea, vomiting, fevers, or tachycardia. The patient had some mild incisional pain. The abdomen was soft. On the morning of postoperative day one, the patient was continued on 1 ounce of water or ice every half hour. During the first day, the patient did fairly well, having some incisional pain, but able to ambulate adequately and to tolerate liquids well. Since the patient is doing well, we decided that the patient was ready to be discharged. The patient was given instructions to follow-up with me next week and to call my office for any fever over 101, persistent abdominal pain, nausea, vomiting, GERD, symptoms of DVT such as calf tenderness, or leg swelling, or pulmonary embolism such as chest pain or shortness of breath. The patient was also instructed to drink 40-60 ounces of liquids per day using the 1-ounce cups. The patient was given prescription for Tylenol for pain, Zofran prn for nausea, and pantoprazole and carafate. The patient was encouraged to ambulate and use the incentive spirometer. The patient was allowed to shower, but no baths, and encouraged to stay active at home. All of these instructions were given to the patient personally. All questions were answered and the patient understood all instructions, the instructions were also given to the patient in print. Total time spent providing and/or coordinating discharge services: 15 Discharge coordination time: Less than 30 minutes Quality: Stroke Does the patient have a stroke diagnosis?: No Physical Exam Vital Signs: Vital Signs: Last Vital Signs Temp 98.6 F 10/18/20 09:05 Pulse 87 10/18/20 09:05 Resp 16 10/18/20 09:05 BP 124/68 10/18/20 09:05 Pulse Ox 98 10/18/20 09:05 Body Mass Index 43.8 DS: Data Data Completed and Pending Pending studies at discharge: Pending at discharge 10/18/20 16:28 Surgical [PTH] Routine Labs on day of discharge: Laboratory Results - last 24 hr 10/18/20 10/18/20 08:50 08:50 Urine Test NEGATIVE COVID-19 ([facility]) Negative COVID-19 Clin Com See Note Discharge Plan Discharge Anticipated Discharge Date/Time: 10/19/20 11:22 Patient Disposition: Home, Self-Care Discharge Diagnosis: s/p sleeve gastrectomy Referrals: Vidya Pryor, CLINICAL TRIAL MANAGER [Primary Care Provider] - 1 Week Discharge Medications: Continued pantoprazole 40 mg tablet,delayed release (DR/EC) 40 mg PO DAILY Qty: 30 RF: 2 sucralfate 100 mg/mL suspension 10 ml PO BID Qty: 400 RF: 2 ondansetron HCl [Zofran] 4 mg tablet 4 mg PO Q12H Qty: 20 RF: 0 Held rosuvastatin 5 mg tablet 5 mg PO DAILY RF: 0 Hold Instructions: Discuss when to restart with Dr Marquez ethynodiol diac-eth estradiol 1-35 mg-mcg tablet 1 tab PO DAILY RF: 0 Hold Instructions: Discuss when to restart with Dr Marquez Discontinued omeprazole 20 mg capsule,delayed release(DR/EC) 20 mg PO DAILY RF: 0 polyethylene glycol 3350 [Miralax] 17 gram powder in packet 17 g PO DAILY Qty: 14 RF: 0 Discharge Orders: Discharge Order (Routine); Ordered 10/19/20 Ordered By: Víctor Marquez Diet: other Activity on Discharge: No heavy lifting Stand Alone Forms: Patient Portal Discharge page Activity Restrictions/Additional Instructions: No tub baths, sex or returning to work until discussed at first post op appointment. No exercise, alcohol, tobacco or illegal drug use. Continue to use incentive spirometer hourly while awake. Walk in home for 5- 10 minutes every 2 hours during the first week. Continue phase 1 diet today and start phase 2 diet tomorrow morning. Follow all instructions in the bariatric handbook and call with any questions. The patient's medical history has been reviewed and they are considered low risk for post op DVT and therefore DVT prophylaxis is not considered necessary. Travel after surgery was reviewed. The patient has not disclosed any travel plans during the first 30 days after surgery and they have been advised that within the first 30 days after surgery any bus, plane, train or car travel over 2 hours in duration is contraindicated due to the possibility of developing blood clots from immobility. Any travel, needs to include periods of ambulation of 10 minutes in duration every 2 hours. The patient was instructed to discuss any plans for travel during this period with their bariatric surgeon. Care Plan Goals: weight loss Health Concerns: morbid obesity Plan of Treatment: see discharge instructions Assessment: POD # 1 stable, s/p sleeve gastrectomy
[2020-10-18] MEDS: Metoclopramide HCl 10 MG/2 ML VIAL IVPUSH (17:32)
[2020-10-18] MEDS: Famotidine/PF 20 MG/2 ML VIAL IVPUSH ×2 (17:33→21:00)
[2020-10-18 17:44] LABS: Hematocrit 43.8 % (37-47)
[2020-10-18 18:02] LABS: Anion Gap 20 (12-20); Blood Urea Nitrogen 7 mg/dL (9-16); Calcium 8.9 mg/dL (8.4-10.2); Carbon Dioxide 18 mmol/L (22-29); Chloride 104 mmol/L (96-108); Creatinine Clr Calc Pharmacy 88.4; Estimated Glomerular Filt Rate > 60; Glucose Random 118 mg/dL (60-115); Potassium 4.5 mmol/L (3.3-5.1); Sodium 137 mmol/L (135-145)
[2020-10-18] MEDS: Lactated Ringers 1,000 ML 125 ML IVCONT (19:04)
[2020-10-18] MEDS: 0.9 % Sodium Chloride Flush 3 ML SYRINGE IVFLUSH (21:00)
[2020-10-19] VITALS: BP 141/86; PULSE 65; RESP 18; TEMP 36.4; O2SAT 95
[2020-10-19] MEDS: Lactated Ringers 1,000 ML 125 ML IVCONT (03:22)
[2020-10-19] MEDS: ondansetron HCL 4 MG/2 ML VIAL IVPUSH (03:30)
[2020-10-19 04:00] VITALS: BP 142/76; PULSE 69; RESP 16; TEMP 36.6; O2SAT 93
[2020-10-19 06:01] LABS: MANUAL DIFF FLAG NO
[2020-10-19 06:17] LABS: Basophils Percent Auto 0.1 % (0-2); Hematocrit 44.3 % (37-47); Hemoglobin 14.4 g/dl (12.0-16.0); Imm Gran Pct Auto 0.7 % (0.0-0.4); Lymphocytes Absolute Auto 1.1 X10*3/uL (1.2-4.9); Lymphocytes Percent Auto 7.5 % (20-40); Mean Corpuscular HGB Conc 32.5 g/dl (31.0-35.0); Mean Corpuscular Hemoglobin 29.6 pg (27.0-33.0); Mean Platelet Volume 8.8 fL (9.4-12.3); Monocytes Absolute Auto 0.8 X10*3/uL (0.1-1.2); Monocytes Percent Auto 5.3 % (2-11); Neutrophils Absolute Auto 13.1 X10*3/uL (2.0-8.3); Neutrophils Percent Auto 86.4 % (45-73); Platelet Count 406 X10*3/uL (160-400); Red Blood Count 4.87 X10*6/uL (4.20-5.50); Red Cell Distribution Width 13.7 % (11.0-16.0); White Blood Count 15.2 X10*3/uL (4.8-10.8)
[2020-10-19 06:58] LABS: Anion Gap 18 (12-20); Blood Urea Nitrogen 6 mg/dL (9-16); Calcium 9.3 mg/dL (8.4-10.2); Carbon Dioxide 19 mmol/L (22-29); Chloride 104 mmol/L (96-108); Estimated Glomerular Filt Rate > 60; Glucose Random 121 mg/dL (60-115); Potassium 4.5 mmol/L (3.3-5.1); Sodium 136 mmol/L (135-145)
[2020-10-19] MEDS: Famotidine/PF 20 MG/2 ML VIAL IVPUSH (07:13)
[2020-10-19 07:25] VITALS: BP 134/77; PULSE 77; RESP 17; TEMP 36.1; O2SAT 97
--- NOTE | 2020-10-19 08:58 | MHC.CM.PN ---
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
--- NOTE | 2020-10-19 15:07 | HO.POSTANES ---
Post Anesthesia Evaluation Post Anesthesia Evaluation Vital Signs: Vital Signs Temp Pulse Resp BP Pulse Ox 10/19/20 07:25 97.0 F 77 17 134/77 97 10/19/20 04:00 97.9 F 69 16 142/76 H 93 Anesthesia: General Endotracheal-GETA Mental Status: Awake Pain Control: Satisfactory Nausea/Vomiting: None Hydration: Adequate Anesthesia-Related Issues: No Anes. Related Issues
== END 2020-10-19 10:43 | disposition home or self-care (01) | DRG 403 ==
LOC: HO.SSSA 17:26 → HO.S3 17:50
PROVIDERS: Nurse Practitioner; Physician Assistant; Admitting Provider Surgery; PCP Nurse Practitioner Primary Care; Visit Provider Surgery
PROC: 0DB64Z3 Excision of Stomach, Percutaneous Endoscopic Approach, Vertical (ICD-10-PCS; CPT 43845; principal; 2020-10-18 12:50)
DX: E66.01 Morbid (severe) obesity due to excess calories (principal); K44.0 Diaphragmatic hernia with obstruction, without gangrene; K66.0 Peritoneal adhesions (postprocedural) (postinfection); E78.5 Hyperlipidemia, unspecified; M25.569 Pain in unspecified knee; M54.9 Dorsalgia, unspecified; K21.9 Gastro-esophageal reflux disease without esophagitis; Z68.41 Body mass index [BMI] 40.0-44.9, adult; Z20.822 Contact with and (suspected) exposure to COVID-19; Z79.899 Other long term (current) drug therapy
CPT/HCPCS: 36415; 80048; 80053; 80061; 81025; 83036; 83525; 84443; 85014; 85018; 85025; 85610; 85730; 86140; 86850; 86900; 86901; 87635; 88307; 88342; 99024; A4649; J0131; J0690; J1100; J1170; J2250; J2370; J2405; J2550; J2765

== ENCOUNTER → 2020-10-24 08:18 | Outpatient (BNVA) | payer BC, SELFPAY | PROVIDERS: PCP Nurse Practitioner Primary Care; Visit Provider Surgery ==

== ENCOUNTER → 2020-12-05 07:08 | Outpatient (BNVA) | payer BC, SELFPAY | PROVIDERS: PCP Nurse Practitioner Primary Care; Visit Provider Surgery ==

== ENCOUNTER → 2021-01-06 08:29 | Outpatient (BNVA) | payer BC, SELFPAY | PROVIDERS: PCP Nurse Practitioner Primary Care; Visit Provider Surgery ==

== ENCOUNTER → 2021-02-10 07:58 | Outpatient (BNVA) | payer BC, SELFPAY | PROVIDERS: PCP Nurse Practitioner Primary Care; Visit Provider Surgery ==

== ENCOUNTER → 2021-02-23 08:13 | Outpatient (BNVA) | payer BC, SELFPAY | PROVIDERS: PCP Nurse Practitioner Primary Care; Visit Provider Dietitian, Registered | DX: E66.01 Morbid (severe) obesity due to excess calories (principal); K21.9 Gastro-esophageal reflux disease without esophagitis; E78.5 Hyperlipidemia, unspecified; K76.0 Fatty (change of) liver, not elsewhere classified; Z68.33 Body mass index [BMI] 33.0-33.9, adult; Z90.3 Acquired absence of stomach [part of]; Z90.49 Acquired absence of other specified parts of digestive tract; Z71.3 Dietary counseling and surveillance | CPT/HCPCS: 97803 ==

== ENCOUNTER → 2021-03-17 13:21 | Outpatient (BNVA) | payer BC, SELFPAY | PROVIDERS: PCP Nurse Practitioner Primary Care; Referring Provider Surgery; Visit Provider Dietitian, Registered | DX: E66.9 Obesity, unspecified (principal); Z68.33 Body mass index [BMI] 33.0-33.9, adult | CPT/HCPCS: 97803 ==

== ENCOUNTER → 2021-03-24 12:57 | Outpatient (BNVA) | payer BC, SELFPAY | PROVIDERS: PCP Nurse Practitioner Primary Care; Referring Provider Nurse Practitioner Primary Care; Visit Provider Physician Assistant Surgical ==

== ENCOUNTER → 2021-04-13 10:59 | Outpatient (BNVA) | payer BC, SELFPAY | PROVIDERS: PCP Nurse Practitioner Primary Care; Referring Provider Surgery; Visit Provider Dietitian, Registered | DX: E66.9 Obesity, unspecified (principal); Z3A.32 32 weeks gestation of pregnancy | CPT/HCPCS: 97803 ==

== ENCOUNTER 2021-04-28 07:56 | Outpatient (REF) | payer BC, SELFPAY ==
[2021-04-28 14:35] LABS: MANUAL DIFF FLAG NO
[2021-04-28 14:50] LABS: Basophils Absolute Auto 0.1 X10*3/uL (0.0-0.2); Basophils Percent Auto 0.5 % (0-2); Eosinophils Absolute Auto 0.2 X10*3/uL (0.0-0.4); Eosinophils Percent Auto 1.8 % (0-4); Hematocrit 40.9 % (37.0-47.0); Hemoglobin 13.4 g/dl (12.0-16.0); Imm Gran Abs Auto 0.04 X10*3/uL (0.00-0.03); Imm Gran Pct Auto 0.4 % (0.0-0.4); Lymphocytes Absolute Auto 3.1 X10*3/uL (1.2-4.9); Lymphocytes Percent Auto 31.6 % (20-40); Mean Corpuscular HGB Conc 32.8 g/dl (31.0-35.0); Mean Corpuscular Hemoglobin 31.2 pg (27.0-33.0); Mean Corpuscular Volume 95.3 fL (80.0-98.0); Mean Platelet Volume 8.4 fL (9.4-12.3); Monocytes Absolute Auto 0.6 X10*3/uL (0.1-1.2); Monocytes Percent Auto 5.7 % (2-11); Neutrophils Absolute Auto 5.8 x10*3/uL (2.0-8.3); Platelet Count 366 X10*3/uL (160-400); Red Blood Count 4.29 X10*6/uL (4.20-5.50); Red Cell Distribution Width 14.5 % (11.0-16.0); White Blood Count 9.7 X10*3/uL (4.8-10.8)
[2021-04-28 14:59] LABS: Estimated Average Glucose 94 mg/dL; Hemoglobin A1c % 4.9 %
[2021-04-28 15:10] LABS: Anion Gap 11 (12-20); Blood Urea Nitrogen 15 mg/dL (9-16); C Reactive Protein 1.83 mg/dL (< or = 0.50); Calcium 9.6 mg/dL (8.4-10.2); Carbon Dioxide 27 mmol/L (22-29); Chloride 104 mmol/L (96-108); Cholesterol 264 mg/dL; Estimated Glomerular Filt Rate > 60; Glucose Random 85 mg/dL (60-115); HDL Cholesterol 70 mg/dL; Iron 68 mcg/dL (30-160); LDL Cholesterol Calculated 172 mg/dl; Percent Iron Saturation 16 % (15-50); Potassium 4.2 mmol/L (3.3-5.1); Sodium 138 mmol/L (135-145); Total Iron Binding Capacity 430 mcg/dL (228-428); Triglycerides 114 mg/dL; Unsaturated Iron Binding 362 ug/dL
[2021-04-28 15:31] LABS: Ferritin 66 ng/mL (10-250); TSH reflex Free T4 2.09 uIU/mL (0.32-4.0); Vitamin D 25-OH Total 64.2 ng/mL (>30)
[2021-04-28 15:45] LABS: Folate > 20.0 ng/mL (> or = 4.0); Vitamin B12 > 2000 pg/mL (200-900)
[2021-05-01 14:52] LABS: PTHI 38 pg/mL (14-64)
[2021-05-02 16:11] LABS: Zinc 52 mcg/dL (60-130)
[2021-05-03 19:46] LABS: Vitamin A 42 mcg/dL (38-98)
[2021-05-04 15:41] LABS: Vitamin B1 15 nmol/L (8-30)
== END 2021-04-28 07:57 | disposition home or self-care (01) ==
LOC: HO.LAB 07:56
PROVIDERS: PCP Nurse Practitioner Primary Care; Visit Provider Physician Assistant Surgical
DX: E66.9 Obesity, unspecified (principal); Z68.32 Body mass index [BMI] 32.0-32.9, adult; Z71.3 Dietary counseling and surveillance; Z98.84 Bariatric surgery status
CPT/HCPCS: 36415; 80048; 80061; 82306; 82607; 82728; 82746; 83036; 83540; 83970; 84425; 84443; 84590; 84630; 85025; 86140